=== PATIENT | female | born 2000 | race Caucasian/White ===

== ENCOUNTER 2024-01-17 21:21 | Emergency (ER) | payer BC, MEDICAID ==
[~2024-01-17] VITALS: Ht 172.7 cm; Wt 68.0 kg
--- NOTE | 2024-01-17 21:45 | NUR ---
PT TAKEN TO 2A VIA W/C.
--- NOTE | 2024-01-17 21:55 | NUR ---
AT BEDSIDE FOR MSE.
[2024-01-17] MEDS ORDERED: LIDOCAINE HCL 2% 20 ML VIAL ONE (22:00)
[2024-01-17] MEDS: LIDOCAINE HCL 2% 20 ML VIAL IJ ONE (22:00)
--- NOTE | 2024-01-17 22:15 | NUR ---
AT BEDSIDE REMOVING SPLINTER FROM LT HEEL.
[2024-01-17] MEDS: NEOMY/BACITRA/POLYMYXIN B OINT UD PACKET TP ONE (22:25)
--- NOTE | 2024-01-17 22:25 | NUR ---
LEFT HEEL WOUND IRRIGATED WITH NS AND ANTI BIOTIC OINTMENT APPLIED AND BANDAIDS.
[2024-01-17] MEDS ORDERED: BACITRACIN ZINC OINT 15 GM TUBE ONE (22:28)
[2024-01-17] MEDS ORDERED: CEPH500C2 PO (22:59)
--- NOTE | 2024-01-17 23:10 | NUR ---
Note katherin in ED - 01/18/24 at 0004 by [email or web address] Patient discharged to home in stable condition. Written and verbal after care instructions given. Patient verbalizes understanding of instructions. Stressed follow up or return to ER for worsening s/s. PT AMB OUT WITH STEADY GAIT .
[2024-01-18 00:05] VITALS: BP 109/61; TEMP 98.2; O2SAT 99
== END 2024-01-17 23:10 | disposition home or self-care (01) ==
LOC: ER 21:27
DX: S91.342A Puncture wound with foreign body, left foot, initial encounter (principal); Z79.899 Other long term (current) drug therapy; W45.8XXA Other foreign body or object entering through skin, initial encounter; Y93.89 Activity, other specified; Y92.89 Other specified places as the place of occurrence of the external cause; Y99.8 Other external cause status
CPT/HCPCS: 99285; 10120; J3490; A4606; A4663